=== PATIENT | male | born 1980 | race Caucasian/White ===

== ENCOUNTER 2018-06-12 10:14 | Emergency (ER) | payer OTHER ==
[~2018-06-12] VITALS: Ht 190.5 cm; Wt 97.5 kg
[2018-06-12] MEDS ORDERED: CYCLOBENZAPRINE10 MG PO (11:55)
[2018-06-12] MEDS ORDERED: IBUPROFEN400 MG PO (11:56)
== END 2018-06-12 12:12 | disposition home or self-care (01) ==
LOC: FSED 10:14
DX: S00.83XA Contusion of other part of head, initial encounter (principal); M62.838 Other muscle spasm; W20.8XXA Other cause of strike by thrown, projected or falling object, initial encounter; Y92.000 Kitchen of unspecified non-institutional (private) residence as the place of occurrence of the external cause; R03.0 Elevated blood-pressure reading, without diagnosis of hypertension
CPT/HCPCS: 70450; 99283

== ENCOUNTER 2019-06-23 09:36 | Emergency (ER) | payer BC, OTHER ==
[~2019-06-23] VITALS: Ht 190.5 cm; Wt 99.8 kg
[~2019-06-23 09:36] MED LIST: CYCLOBENZAPRINE10 MG PO; IBUPROFEN400 MG PO
--- OUTSIDE RECORDS SUMMARY | 2019-06-23 09:40 | XMS REPORT | Continuity of Care Document ---
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 Phone [employer] Information [employer] Unavailable Unavailable Problems Problem Status Onset Date Classification Date Reported Comments Source Acute pharyngitis 02/21/2019 Diagnosis 02/21/2019 [facility] Body mass index 25-29 - overweight 02/21/2019 Diagnosis 02/21/2019 [facility] Immunization due 02/21/2019 Diagnosis 02/21/2019 [facility] Hypertensive disorder 02/21/2019 Diagnosis 02/21/2019 [facility] Exposure to Influenzavirus 02/21/2019 Diagnosis 02/21/2019 [facility] Acute upper respiratory infection 02/21/2019 Diagnosis 02/21/2019 [facility] Smoker 02/21/2019 Diagnosis 02/21/2019 [facility] Acute bronchitis 03/14/2018 Diagnosis 03/14/2018 [facility] Dysfunction of eustachian tube 03/14/2018 Diagnosis 03/14/2018 [facility] Acute tonsillitis 03/14/2018 Diagnosis 03/14/2018 [facility] Acute sinusitis 03/14/2018 Diagnosis 03/14/2018 [facility] Medications Medication Details Route Status Patient Instructions Ordering Provider Order Date Source Amoxicillin 875 MG / Clavulanate 125 MG Oral Tablet [Augmentin] Augmentin 875 mg-125 mg tablet Take 1 tablet every 12 hours by oral route for 10 days. Active [facility] benzonatate 200 MG Oral Capsule benzonatate 200 mg capsule Take 1 capsule 3 times a day by oral route as needed. Active [facility] Brompheniramine Maleate 0.4 MG/ML / Dextromethorphan Hydrobromide 2 MG/ML / Pseudoephedrine Hydrochloride 6 MG/ML Oral Solution [Bromfed DM] Bromfed DM 2 mg-30 mg-10 mg/5 mL syrup Take 10 mL every 4 hours by oral route as needed. as needed for cough Active [facility] Fluticasone propionate 0.05 MG/ACTUAT Metered Dose Nasal [place] fluticasone propionate 50 mcg/actuation nasal spray,suspension [place] 1 spray every day by intranasal route. Active [facility] Ibuprofen 800 MG Oral Tablet ibuprofen 800 mg tablet Take 1 tablet 3 times a day by oral route. Active [facility] Lidocaine Hydrochloride 20 MG/ML Mucous Membrane Topical Solution Lidocaine Viscous 2 % mucosal solution Take 10 mL every 4 hours by oral route as needed. gargle and spit as needed for throat pain Active [facility] Medrol (Rosendo) 4 mg tablets in a dose pack Medrol (Rosendo) 4 mg tablets in a dose pack Take 1 dose pk by oral route as directed. Active [facility] 200 ACTUAT Albuterol 0.09 MG/ACTUAT Metered Dose Inhaler [ProAir] ProAir HFA 90 mcg/actuation aerosol inhaler Inhale 2 puffs every 4 hours by inhalation route. Active [facility] Aspirin 81 MG Chewable Tablet aspirin 81 mg chewable tablet Active [facility] 12 HR Bupropion Hydrochloride 150 MG Extended Release Oral Tablet bupropion HCl SR 150 mg tablet,12 hr sustained-release Active [facility] Hydrochlorothiazide 25 MG Oral Tablet hydrochlorothiazide 25 mg tablet Active [facility] levocetirizine dihydrochloride 5 MG Oral Tablet levocetirizine 5 mg tablet Take 1 tablet every day by oral route at bedtime for 7 days. Active [facility] Oseltamivir 75 MG Oral Capsule [Tamiflu] Tamiflu 75 mg capsule Take 1 capsule every day by oral route for 10 days. Active [facility] Allergies, Adverse Reactions, Alerts No Known Medication Allergies Immunizations Immunization Date Given Site Status Last Updated Comments Source Tdap 03/13/2015 completed [facility] Results Order Name Results Value Reference Range Date Interpretation Comments Source Influenza A negative 02/21/2019 [facility] Influenza B negative 02/21/2019 [facility] RESULT negative 02/21/2019 [facility] SWAB LOCATION Left and Right tonsillar pillars 02/21/2019 [facility] RESULT negative 03/14/2018 [facility] Influenza A negative 03/14/2018 [facility] Influenza B negative 03/14/2018 [facility] Pathology Reports No Data Provided for This Section Diagnostic Reports No Data Provided for This Section Consultation Notes No Data Provided for This Section Discharge Summaries No Data Provided for This Section History and Physicals No Data Provided for This Section Vital Signs Vital Sign Value Date Comments Source Diastolic (mm Hg) 84 02/21/2019 [facility] Height 75 02/21/2019 [facility] Systolic (mm Hg) 130 02/21/2019 [facility] Weight 210 02/21/2019 [facility] Diastolic (mm Hg) 81 03/14/2018 [facility] Height 75 03/14/2018 [facility] Systolic (mm Hg) 134 03/14/2018 [facility] Weight 200 03/14/2018 [facility] Encounters Location Location Details Encounter Type Encounter Number Reason For Visit Attending Provider ADM Date DC Date Status Source [place] - [facility] - [id number] Ej Goldstein, [employer]-C: [address] [place] [address], Ph. [id number] Ej Goldstein 03/14/2018 [facility] [place] - [facility] - [id number] Sarah Michi, [employer] SOC[employer]-C: [address] [place] [address], Ph. [id number] Osiris Michi 02/21/2019 [facility] Procedures No Data Provided for This Section Assessment and Plan No Data Provided for This Section Plan of Care No Data Provided for This Section Social History Social History Date Source Smoking Status Current Every Day Smoker 03/14/2018 [facility] Family History No Data Provided for This Section Advance Directives No Data Provided for This Section Functional Status No Data Provided for This Section
--- OUTSIDE RECORDS SUMMARY | 2019-06-23 09:40 | XMS REPORT | Encounter Summary ---
Author Organization Unknown Address [address] [place] [address] Phone [phone] Reason for Visit Medical Complaint Instructions 1. Acute sinusitis rapid flu (A+B) sinusitis: care instructions fluticasone 50 mcg/actuation nasal spray,suspension Augmentin 875 mg-125 mg tablet 2. Acute bronchitis Bromfed DM 2 mg-30 mg-10 mg/5 mL syrup Medrol (Rosendo) 4 mg tablets in a dose pack bronchitis: care instructions benzonatate 200 mg capsule ProAir HFA 90 mcg/actuation aerosol inhaler 3. Acute tonsillitis rapid strep group A, throat Lidocaine Viscous 2 % mucosal solution sore throat: care instructions ibuprofen 800 mg tablet culture, respiratory 4. Dysfunction of eustachian tube eustachian tube problems: care instructions Discussion Note Pt is in no apparent acute distress; Verbalizes understanding of and agreement with all instructions with no questions at this time. Plan of Care Patient Instructions Take all medications as directed. Follow up with your PCP as needed. Seek additional medical care with new or worsening symptoms, or if symptoms do not resolve in 3-4 days. Thank you for allowing me to participate in your healthcare! Reminders Provider Appointments None recorded. Lab Rapid Flu (A+B) 03/14/2018 [facility] Rapid Strep Group a, Throat 03/14/2018 [facility] Culture, Respiratory 03/14/2018 [facility] Referral None recorded. Procedures None recorded. Surgeries None recorded. Imaging None recorded. Medications Name Start Date Augmentin 875 mg-125 mg tablet Take 1 tablet every 12 hours by oral route for 10 days. benzonatate 200 mg capsule Take 1 capsule 3 times a day by oral route. Bromfed DM 2 mg-30 mg-10 mg/5 mL syrup Take 10 mL every 4 hours by oral route as needed. as needed for cough fluticasone 50 mcg/actuation nasal spray,suspension [place] 1 spray twice a day by intranasal route for 14 days. ibuprofen 800 mg tablet Take 1 tablet 3 times a day by oral route. Lidocaine Viscous 2 % mucosal solution Take 10 mL every 4 hours by oral route as needed. gargle and spit as needed for throat pain Medrol (Rosendo) 4 mg tablets in a dose pack Take 1 dose pk by oral route as directed. ProAir HFA 90 mcg/actuation aerosol inhaler Inhale 2 puffs every 4 hours by inhalation route. Medications Administered None recorded. Vitals Height Weight BMI Blood Pressure 6 ft 3 in 200 lbs 25 kg/m2 134/81 mm[Hg] Lab Results Date Name Specimen Result Interpretation Description Value Range Status Address Rapid Strep Group a, Throat Result negative [facility]: [address] [place] [address] Rapid Flu (A+B) Influenza a negative [facility]: [address] [place] [address] Influenza B negative [facility]: [address] [place] [address] Allergies Code Code System Name Reaction Severity Status Onset NKDA Problems No Known Problems Procedures None recorded. Vaccine List Vaccine Type Tdap 03/13/2015 Social History Smoking Status Current Every Day Smoker Past Encounters 03/14/2018 Acute Sinusitis; Acute Bronchitis; Acute Tonsillitis; Dysfunction of Eustachian Tube Ej Goldstein, [facility]-C: [address] [place] [address], Ph. History of Present Illness Throat-Oral Complaint Reported By: Patient HPI: Location: throat. Quality: sore throat, productive cough, congested, wheezy cough. Severity: moderate. Duration: 3 days. Context: no foreign travel, sick contact. Associated Symptoms: no fever, no shortness of breath, no change in number of pillows needed to sleep at night, no sweats, no significant weight gain, no significant weight loss, no morning cough, no vomiting, no diarrhea, no rash, no nausea, headache, body aches, yellow-green, thick sputum, wheezing, fatigue, sore throat Review of Systems:ROS as noted in the HPI Review of Systems Basic Reported By: Patient Physical Exam Adult Basic, Adult Male Complete Reported By: Patient Constitutional: General Appearance: healthy-appearing, well-nourished, well-developed. Level of Distress: NAD. Ambulation: ambulating normally Psychiatric: Mental Status: active and alert. Orientation: to time, to place, to person Eyes: Lids and Conjunctivae: non-injected, no discharge, no pallor. Pupils: PERRLA. Corneas: grossly intact. EOM: EOMI. Lens: clear. Sclerae: non-icteric. Vision: acuity grossly intact Zaa-Xful-Wgeew-Throat: Ears: no lesions on external ear, no outer ear tenderness, EACs clear, TMs clear, TM mobility normal, middle ear fluid. Hearing: no hearing loss. Nose: no lesions on external nose, nares patent, no septal deviation, nasal passages clear, no sinus tenderness, nasal discharge--purulent, post nasal drip. Lips, Teeth, and Gums: no mouth or lip ulcers. Oropharynx: moist mucous membranes, no exudates, erythema, tonsils enlarged 2+ Neck: Neck: supple, trachea midline, no masses, FROM. Lymph Nodes: no supraclavicular LAD, anterior cervical LAD. Thyroid: no enlargement, non-tender, no nodules Lungs: Respiratory effort: no dyspnea, no tachypnea, no use of accessory muscles, no intercostal retractions. Auscultation: good air movement, expiratory wheezing Cardiovascular: Heart Auscultation: RRR, no murmurs Neurologic: Gait and Station: normal gait, normal station Skin: Inspection and palpation: no rash, no lesions
--- OUTSIDE RECORDS SUMMARY | 2019-06-23 09:40 | XMS REPORT | Encounter Summary ---
Author Organization Unknown Address [address] [place] [address] Phone [phone] Reason for Visit Medical Complaint Instructions 1. Acute upper respiratory infection upper respiratory infection (cold): care instructions fluticasone propionate 50 mcg/actuation nasal spray,suspension benzonatate 200 mg capsule levocetirizine 5 mg tablet 2. Acute pharyngitis rapid strep group A, throat 3. Exposure to Influenzavirus rapid flu (A+B) Tamiflu 75 mg capsule 4. Hypertensive disorder elevated blood pressure: care instructions 5. Smoker stopping smoking: care instructions 6. Body mass index 25-29 - overweight A healthy lifestyle: care instructions 7. Immunization due Discussion Note: None recorded. Plan of Care Patient Instructions See care instructions provided. Reminders Provider Appointments None recorded. Lab Rapid Flu (A+B) 02/21/2019 [facility] Rapid Strep Group a, Throat 02/21/2019 [facility] Referral None recorded. Procedures None recorded. Surgeries None recorded. Imaging None recorded. Medications Name Start Date aspirin 81 mg chewable tablet benzonatate 200 mg capsule Take 1 capsule 3 times a day by oral route as needed. bupropion HCl SR 150 mg tablet,12 hr sustained-release fluticasone propionate 50 mcg/actuation nasal spray,suspension [place] 1 spray every day by intranasal route. hydrochlorothiazide 25 mg tablet levocetirizine 5 mg tablet Take 1 tablet every day by oral route at bedtime for 7 days. Tamiflu 75 mg capsule Take 1 capsule every day by oral route for 10 days. Medications Administered None recorded. Vitals Height Weight BMI Blood Pressure 6 ft 3 in 210 lbs 26.2 kg/m2 130/84 mm[Hg] Lab Results Date Name Specimen Result Interpretation Description Value Range Status Address 02/21/2019 Rapid Flu (A+B) Influenza a negative [facility]: [address] [place] [address] Influenza B negative [facility]: [address] [place] [address] Rapid Strep Group a, Throat Result negative [facility]: [address] [place] [address] Swab Location Left and Right tonsillar pillars [facility]: [address] [place] [address] Allergies Code Code System Name Reaction Severity Status Onset NKDA Problems No Known Problems Procedures None recorded. Vaccine List Vaccine Type Tdap 03/13/2015 Social History Smoking Status Current Every Day Smoker Past Encounters 02/21/2019 Acute Upper Respiratory Infection; Acute Pharyngitis; Exposure to Influenzavirus; Hypertensive Disorder; Smoker; Body Mass Index 25-29 - Overweight; Immunization Due Osiris Borden, [employer]-C: [address] [place] [address], Ph. History of Present Illness [id number] Reported By: Patient HPI: Location: head/sinuses, throat. Quality: sore throat, nasal/sinus congestion, dry cough. Duration: 3days. Context: no foreign travel, non-smoker, sick contact. Modifying factors: OTC medication. Associated Symptoms: no sputum production, no shortness of breath, no wheezing, no change in number of pillows needed to sleep at night, no sweats, no significant weight gain, no significant weight loss, no morning cough, no vomiting, no diarrhea, no rash, no nausea, no fever, no muscle aches, no headache, fatigue, sore throat, fever Review of Systems:ROS as noted in the HPI Review of Systems Basic Reported By: Patient Physical Exam Adult Basic, Adult Male Complete Reported By: Patient Constitutional: General Appearance: healthy-appearing, well-nourished, well-developed. Level of Distress: NAD. Ambulation: ambulating normally Psychiatric: Mental Status: active and alert. Orientation: to time, to place, to person Eyes: Lids and Conjunctivae: non-injected, no discharge, no pallor Bze-Cree-Fnbpt-Throat: Ears: no lesions on external ear, no outer ear tenderness, EACs clear, TM opacified. Hearing: no hearing loss. Nose: no lesions on external nose, nares patent, no septal deviation, nasal passages clear, no sinus tenderness, nasal discharge--rhinorrhea, post nasal drip. Lips, Teeth, and Gums: no mouth or lip ulcers, no bleeding gums, normal dentition. Oropharynx: moist mucous membranes, no exudates, tonsils not enlarged, erythema Lungs: Respiratory effort: no dyspnea, no tachypnea, no use of accessory muscles, no intercostal retractions. Auscultation: breath sounds normal Cardiovascular: Heart Auscultation: RRR, no murmurs
[2019-06-23] MEDS ORDERED: IOPAMIDOL 370 MG/ML 200 ML INFUS..BTL INJ ONE (10:57)
--- NOTE | 2019-06-23 12:19 | Diagnostic Imaging Report ---
CT Abdomen And Pelvis with Intravenous Contrast INDICATION: Abdominal pain ^[id number] ^[id number] TECHNIQUE: Thin collimation axial images obtained from the diaphragm to the level of the pubic symphysis following the uneventful administration of 100 cc of low osmolar, nonionic intravenous contrast. Dose reduction techniques used: Automated exposure control, adjustment of the mAs and/or kVp according to patient size, standardized low-dose protocol, and/or iterative reconstruction technique. RADIATION DOSE: Total DLP: 852.35 mGy*cm Estimated effective dose: (DLP x 0.015 x size factor) mSv CTDIvol has been reviewed. It is below the limits set by the Radiation Protocol Committee (RPC). COMPARISON: None. ABDOMEN FINDINGS: Lung Bases: Clear. The visualized portions of the mediastinum are normal. Liver: Grossly normal attenuation. No evidence for mass. Gallbladder: Present and appears normal. No biliary ductal dilatation. Pancreas: Normal attenuation without mass or ductal dilatation. Spleen: Normal in size. No evidence of mass. Adrenal Glands: No evidence for mass. Kidneys: Right: Normal enhancement. No soft tissue mass. No hydronephrosis. Left: Normal enhancement. No soft tissue mass. No hydronephrosis. Lymph Nodes: No enlarged abdominal or retroperitoneal lymph nodes.. Aorta: Normal PELVIS FINDINGS: Bowel: Stomach: Normal. Small Bowel: Normal in caliber with normal wall thickness. Large Bowel: Normal in caliber with normal wall thickness. Focal calcification in the cecum may be a tablet or other medication. Appendix: Normal appendix. Bladder: Normal. Ureters: No calculus or dilatation. Peritoneum/retroperitoneum: No free fluid or fluid collection. Bones: Mild degenerative changes at L5-S1. No focal osseous lesions. IMPRESSION: 1. No evidence for bowel obstruction or inflammation. Normal appendix. 2. No CT findings to explain pain. Signed by: Dr. Reid Jimenez MD on 06/23/2019 12:15 PM
[2019-06-23] MEDS ORDERED: LIDOCAINE VISC 2% SOLN 15 ML UDC ONE (12:41)
[2019-06-23] MEDS ORDERED: MAGNESIUM/ALUMINUM/SIMETHICONE 30 ML UDC ONE (12:42)
[2019-06-23] MEDS ORDERED: BELLADONNA ALK/PHENOBARBITAL 5 ML UDC ONE (12:42)
[2019-06-23 12:44] VITALS: BP 140/80
[2019-06-23] MEDS ORDERED: DONNATAL/LIDOCAINE/MAALOX 30 ML SUSP PO SCH (12:45)
== END 2019-06-23 12:55 | disposition home or self-care (01) ==
LOC: FSED 09:36
DX: R10.13 Epigastric pain (principal); R19.7 Diarrhea, unspecified; I10 Essential (primary) hypertension; K21.9 Gastro-esophageal reflux disease without esophagitis; F41.9 Anxiety disorder, unspecified; F32.9 Major depressive disorder, single episode, unspecified; F17.210 Nicotine dependence, cigarettes, uncomplicated
CPT/HCPCS: 36415; 74177; 80053; 81003; 82553; 83690; 84484; 85025; 93005; 99284; Q9967